=== PATIENT | male | born 1970 | race African-American/Black ===

== ENCOUNTER 2018-05-10 02:44 | Emergency (ER) | payer MEDICARE, OTHER ==
[~2018-05-10] VITALS: Ht 185.4 cm; Wt 79.4 kg
[~2018-05-10 02:44] MED LIST: KALETRA 200-501 EAC1 ORAL; MULTIVITAMINS1 EAC6 ORAL; NEUPOGEN300 MCG/0. IM; OXANDRIN10 MG ORAL; SEROSTIM6 M1 SQ; TESTONE CI200 MG/1 M IM; VIREAD300 MG ORAL
[2018-05-10] MEDS ORDERED: [UNRECOGNIZED DRUG - OTHER] (02:52)
[2018-05-10] MEDS ORDERED: trimeq (02:52)
[2018-05-10] MEDS ORDERED: Morphine Sulfate 4mg/ml Inj (IV USE ONLY) IVP ONE (03:15)
[2018-05-10] MEDS ORDERED: Isovue-300 100ml vial INJ PRN (03:15)
[2018-05-10 03:40] VITALS: BP 119/69
[2018-05-10 03:46] LABS: BASOPHILS % (AUTO) 0.8 % (0.0-2.0); HEMATOCRIT 45.7 % (42.0-52.0); HEMOGLOBIN 14.9 G/DL (14.2-18.0); LYMPHOCYTES % (AUTO) 7.6 % (20.0-45.0); MEAN CORPUSCULAR VOLUME 91 FL (80-99); NEUTROPHILS % (AUTO) 79.6 % (45.0-75.0); PLATELET COUNT 300 K/UL (150-450); RED CELL DISTRIBUTION WIDTH 12.4 % (11.6-14.8); WHITE BLOOD COUNT 10.6 K/UL (4.8-10.8)
[2018-05-10 03:55] LABS: APPEARANCE,URINE CLEAR; BILIRUBIN, URINE NEGATIVE (NEGATIVE); GLUCOSE, URINE (UA) NEGATIVE (NEGATIVE); KETONES,URINE NEGATIVE (NEGATIVE); LEUKOCYTE ESTERASE ,URINE NEGATIVE (NEGATIVE); NITRITE,URINE NEGATIVE (NEGATIVE); PH,URINE 5 (4.5-8.0); PROTEIN,URINE 2+ (NEGATIVE); UROBILINOGEN,URINE NORMAL MG/DL (0.0-1.0)
[2018-05-10 03:58] LABS: COLOR,URINE YELLOW
[2018-05-10 04:00] LABS: ANION GAP 10 mmol/L (5-15); BLOOD UREA NITROGEN 17 mg/dL (7-18); CALCIUM 8.6 MG/DL (8.5-10.1); CARBON DIOXIDE 26 MMOL/L (21-32); CHLORIDE 96 MMOL/L (98-107); CREATININE 1.5 MG/DL (0.55-1.30); POTASSIUM 3.8 MMOL/L (3.5-5.1); SODIUM 132 MMOL/L (136-145)
[2018-05-10 04:04] LABS: ALANINE AMINOTRANSFERASE 32 U/L (12-78); ALBUMIN 3.3 G/DL (3.4-5.0); ALBUMIN/GLOBULIN RATIO 0.7 (1.0-2.7); ALKALINE PHOSPHATASE 68 U/L (46-116); ASPARTATE AMINO TRANSFERASE 66 U/L (15-37); BILIRUBIN,TOTAL 0.9 MG/DL (0.2-1.0)
[2018-05-10 05:07] VITALS: BP 102/61
[2018-05-10] MEDS ORDERED: cefTRIAXone 1 GM in NS 55 ML IVPB ONE (05:15)
--- NOTE | 2018-05-10 05:25 | Emergency Room Report ---
History of Present Illness General Chief Complaint: Nausea, Vomiting, and Diarrhea Source: Patient Present Illness HPI This is a 48-year-old male with history of HIV. He is currently on medication and compliant. His viral load is undetectable. He before count is normal per patient. He presents with abdominal cramping and perfuse diarrhea for last couple days. [place] weak. Subjective fever. No chills. Has nausea but no vomiting. Nothing made it better. Nothing made it worse. Diarrhea is profuse but no blood. Allergies: Coded Allergies: No Known Allergies (Verified Allergy, Mild, 06/27/11) Patient History Past Medical History: see triage record, old chart reviewed, HIV Past Surgical History: other Pertinent Family History: none Social History: Denies: smoking Immunizations: other Reviewed Nursing Documentation: PMH: Agreed; PSxH: Agreed Nursing Documentation-PMH Hx Cardiac Problems: No Hx Cancer: No Hx Gastrointestinal Problems: No - HIV+ Hx Neurological Problems: No Review of Systems Eye: Denies: eye pain, blurred vision ENT: Denies: ear pain, nose congestion, throat swelling Respiratory: Denies: cough, shortness of breath Cardiovascular: Denies: chest pain, palpitations Gastrointestinal: Reports: abdominal pain, diarrhea, nausea; Denies: vomiting Musculoskeletal: Denies: back pain, joint pain Skin: Denies: rash Neurological: Denies: headache, numbness Endocrine: Denies: increased thirst, increased urine Hematologic/Lymphatic: Denies: easy bruising All Other Systems: negative except mentioned in HPI Physical Exam Vital Signs Date Time Temp Pulse Resp B/P (MAP) Pulse Ox O2 Delivery O2 Flow Rate FiO2 05/10/18 02:46 98.4 103 16 93/59 99 Room Air 98.4 vitals unremarkable Sp02 EP Interpretation: reviewed, normal General Appearance: well appearing, no apparent distress, alert Head: normocephalic, atraumatic Eyes: bilateral eye PERRL, bilateral eye EOMI ENT: hearing grossly normal, normal pharynx Neck: full range of motion, supple, no meningismus Respiratory: chest non-tender, lungs clear, normal breath sounds Cardiovascular #1: regular rate, rhythm, no murmur Gastrointestinal: no mass, no organomegaly, no bruit, non-distended, abnormal bowel sounds - Hyperactive, tenderness - Mild, diffuse tendernes Musculoskeletal: back normal, gait/station normal, normal range of motion Psychiatric: mood/affect normal Skin: warm/dry Medical Decision Making Diagnostic Impression: Primary Impression: Proctocolitis ER Course Patient with abdominal pain and diarrhea. CT scan showed proctocolitis. We'll put him on antibiotics. Dose of Rocephin given here. No evidence of obstruction. No evidence of acute abdomen. Patient felt better now. Blood pressure stable. We'll discharge home. Lab Results Impression labs unremarkable CT/MRI/US Diagnostic Results CT/MRI/US Diagnostic Results : Imaging Test Ordered: CT abdomen and pelvis Impression Read by radiologist. Moderate bowel wall thickening of the colon extending to the rectum suggesting infectious proctocolitis. Last Vital Signs Date Time Temp Pulse Resp B/P (MAP) Pulse Ox O2 Delivery O2 Flow Rate FiO2 05/10/18 05:07 98.5 83 12 102/61 100 Room Air 98.5 Status: improved Disposition: HOME, SELF-CARE Condition: Stable Scripts Doxycycline Monohydrate* (DOXYCYCLINE MONOHYDRATE*) 100 Mg Capsule 100 MG ORAL Q12H, #14 CAP 0 Refills Prov: IRVIN RYAN M.D. 05/10/18 Referrals: NOT CHOSEN [facility]/,REFERRING (PCP) Additional Instructions: Follow-up with your DrAlma in 2 to 3 days. Return if worse. IRVIN RYAN M.D. May 10, 2018 05:25
[2018-05-10] MEDS ORDERED: DOXYCYCLINE MO100 MG ORAL (05:31)
[2018-05-10] MEDS ORDERED: HYDROCODON-ACE1 EA15 ORAL (05:33)
[2018-05-10 05:49] VITALS: BP 123/68
[2018-05-10 06:06] VITALS: BP 123/68
--- NOTE | 2018-05-10 10:27 | Diagnostic Imaging Report ---
Indication: Abdominal pain for 2 days Technique: Spiral acquisitions obtained through the abdomen and pelvis. No oral contrast utilized, per emergency room physician request No IV contrast utilized, per referring physician request.. Multiplanar reconstructions were generated. Total dose length product 518.96 mGycm. CTDIvol(s) 10.31 mGy. Dose reduction achieved using automated exposure control Comparison: None Findings: Lack of enteric contrast and opacity of the abdominal fat limits assessment of the GI tract. The appendix is not definitely visualized, but no findings to suggest acute appendicitis are evident. The colon is somewhat fluid-filled. There is mild wall thickening of the colon from the splenic flexure to the distal sigmoid. No evidence of diverticulosis or diverticulitis. No free or loculated intraperitoneal fluid or gas. Small bowel loops are mildly prominent, fluid-filled, but not frankly dilated. Lack of IV contrast limits assessment of the solid organs. The liver is grossly unremarkable. The gallbladder demonstrates mural calcifications, is unusually elongated. No definite gallstones. No biliary ductal dilatation. The pancreas, spleen, adrenals are unremarkable. The kidneys demonstrate bilateral cysts. There are also bilateral subcentimeter low-attenuation renal lesions which are too small to characterize. No pelvic mass or adenopathy. No retroperitoneal or mesenteric mass or adenopathy. The included lung bases are clear. The bones demonstrate degenerative spondylosis at L4-5. 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 No further follow-up necessary Degenerative spondylosis This agrees with the preliminary interpretation provided overnight by [facility] service. The CT scanner at [facility] is accredited by the [employer] and the scans are performed using protocols designed to limit radiation exposure to as low as reasonably achievable to attain images of sufficient resolution adequate for diagnostic evaluation.
== END 2018-05-10 06:06 | disposition home or self-care (01) ==
LOC: EMR 03:15
DX: K51.30 Ulcerative (chronic) rectosigmoiditis without complications (principal)
CPT/HCPCS: 36415; 74176; 80053; 81003; 83690; 85025; 96361; 96365; 96375; 99285; J0696; J2270; J2405